=== PATIENT | female | born 1975 | race American Indian/Alaskan Native ===

== ENCOUNTER 2023-11-04 10:33 | Outpatient (CLI) | payer OTHER ==
--- NOTE | 2023-11-05 08:43 | Mammography Report ---
BILATERAL FIRST EVER DIGITAL SCREENING MAMMOGRAM 3D/2D WITH EXAGGERATED CC: 11/04/2023 CLINICAL: Baseline exam. Routine screening. No prior exams were available for comparison. Both breasts are heterogeneously dense, which may obscure small masses (category c / 51-75% glandular tissue). There is a focal asymmetry in the right breast at 5 o'clock anterior depth. There also is a focal asymmetry in the right breast at 8 o'clock middle depth. No other significant masses, calcifications, or other findings are seen in either breast. IMPRESSION: INCOMPLETE: NEEDS ADDITIONAL IMAGING EVALUATION The focal asymmetry in the right breast at 5 o'clock anterior depth is indeterminate. Additional vie ws with possible ultrasound are recommended. The focal asymmetry in the right breast at 8 o'clock middle depth is indeterminate. Additional views with possible ultrasound are recommended. Based on the Tyrer Cuzick model (a risk assessment model) the patient's lifetime risk is 11.1% and he r 10 year risk is 2.4%. According to the ACR, ACS, and NCCN guidelines, an annual breast MRI exam smith ng with mammogram is recommended if the patient's lifetime risk is 20% or greater. This exam was interpreted at Station ID: [id number]. NOTE: For mammograms, a report in lay terms will be sent to the patient. Approximately 15% of breast malignancies will not be visualized mammographically. In the management of a palpable breast mass, a negative mammogram must not discourage biopsy of a clinically suspicious lesion. Electronically Signed By: Terrence palomo/penrad:11/04/2023 11:41:44 ACR BI-RADS Category 0: Incomplete 3340F PARENCHYMAL PATTERN: (D) - The breast(s) demonstrate(s) heterogeneously dense fibroglandular parilda cotton. BI-RADS CATEGORY: (0) - 0 Mammo and [place] [id number] Immediate follow-up LATERALITY: (B)
== END 2023-11-04 10:34 | disposition home or self-care (01) ==
LOC: DI.S 10:33
DX: Z12.31 Encounter for screening mammogram for malignant neoplasm of breast (principal); R92.333 Mammographic heterogeneous density, bilateral breasts; R92.8 Other abnormal and inconclusive findings on diagnostic imaging of breast

== ENCOUNTER 2023-12-16 13:11 | Outpatient (CLI) | payer OTHER ==
--- NOTE | 2023-12-17 07:55 | Ultrasound Report ---
LIMITED ULTRASOUND OF RIGHT BREAST: 12/16/2023 CLINICAL: Patient returns today to evaluate a focal asymmetry in the right breast. Comparison is made to exams dated: 12/16/2023 mammogram and 11/04/2023 mammogram - [facility]. Color flow and real-time ultrasound of the right breast 3-4 o'clock and 7-9 o'clock regions were perf ormed. Joseph scale images of the real-time examination were reviewed. There is a 0.7 cm x 0.8 cm x 0.4 cm oval mass with a circumscribed margin in the right breast at 3 o' clock anterior depth 4 cm from the nipple. This oval mass is hypoechoic. This correlates with mammo graphy findings. Color flow imaging demonstrates that there is no vascularity present. IMPRESSION: PROBABLY BENIGN The 0.7 cm x 0.8 cm x 0.4 cm oval mass in the right breast most likely is a fibroadenoma and is proba karly benign. There is no abnormality seen in the right breast to correspond with the mammography finding at 8 o'cl ock, which is probably benign. A follow-up right mammogram and an ultrasound in 6 months is recommended to demonstrate stability. This exam was interpreted at Station ID: [id number]. Electronically Signed By: Raimundo Gaona M.D. ar/:12/16/2023 16:40:17 Ultrasound BI-RADS: 3 Probably benign BI-RADS CATEGORY: (3) - 3 Mammo and [place] [id number] 6 month follow-up LATERALITY: (R)
--- NOTE | 2023-12-17 07:55 | Mammography Report ---
UNILATERAL RIGHT DIGITAL DIAGNOSTIC MAMMOGRAM 3D/2D WITH SPOT COMPRESSION: 12/16/2023 CLINICAL: Patient returns today to evaluate focal asymmetries in the right breast. Comparison is made to exam dated: 11/04/2023 mammogram - [facility]. The right breast is heterogeneously dense, which may obscure small masses (category c / 51-75% glandu lar tissue). There is a 0.8 cm oval focal asymmetry with a circumscribed margin in the right breast at 3 o'clock a nterior depth. This is seen in additional views. There also is an oval focal asymmetry with a circumscribed margin in the right breast at 8 o'clock mi ddle depth. This is seen in additional views. No other significant masses or calcifications are seen in the breast. IMPRESSION: INCOMPLETE: NEEDS ADDITIONAL IMAGING EVALUATION The 0.8 cm oval focal asymmetry in the right breast at 3 o'clock anterior depth is indeterminate. An ultrasound is recommended. The oval focal asymmetry in the right breast at 8 o'clock middle depth most likely is an intramammary node and is indeterminate. An ultrasound is recommended. Based on the Tyrer Cuzick model (a risk assessment model) the patient's lifetime risk is 11.1% and he r 10 year risk is 2.4%. According to the ACR, ACS, and NCCN guidelines, an annual breast MRI exam smith ng with mammogram is recommended if the patient's lifetime risk is 20% or greater. This exam was interpreted at Station ID: [id number]. NOTE: For mammograms, a report in lay terms will be sent to the patient. Approximately 15% of breast malignancies will not be visualized mammographically. In the management of a palpable breast mass, a negative mammogram must not discourage biopsy of a clinically suspicious lesion. Electronically Signed By: Raimundo lucio/lora:12/16/2023 16:36:01 ACR BI-RADS Category 0: Incomplete 3340F PARENCHYMAL PATTERN: (D) - The breast(s) demonstrate(s) heterogeneously dense fibroglandular parenchy ma. BI-RADS CATEGORY: (0) - 0 Ultrasound [id number] Immediate follow-up LATERALITY: (R)
== END 2023-12-16 13:12 | disposition home or self-care (01) ==
LOC: DI 13:11
PROVIDERS: ATTEND Nurse Practitioner Acute Care
DX: R92.8 Other abnormal and inconclusive findings on diagnostic imaging of breast (principal); N63.15 Unspecified lump in the right breast, overlapping quadrants; R92.331 Mammographic heterogeneous density, right breast